=== PATIENT | male | born 1940 | race Caucasian/White ===

== ENCOUNTER → 2017-03-02 | Outpatient (CLI) | payer OTHER, BC ==
[~2017-03-02] MED LIST: FINA5TAB4 PO; LISI20TA3 PO; PRLSR20 PO
[2017-03-02 13:21] LABS: TOTAL IRON BINDING CAPACITY 292 mcg/dl (250-450)
[2017-03-02 13:29] LABS: HEPATITIS B AB NEG
[2017-03-02 14:00] LABS: ALKALINE PHOSPHATASE 62 U/L (45-117); ALT/SGPT 54 U/L (12-78); AMYLASE 77 U/L (25-115); AST/SGOT 20 U/L (15-37); BLOOD UREA NITROGEN 16 mg/dl (7-18); BUN/CREATININE RATIO 13.5 (10-20); CALCIUM 8.6 mg/dl (8.5-10.1); CARBON DIOXIDE 27 mmol/L (21-32); CHLORIDE 105 mmol/L (98-107); CHOLESTEROL 167 mg/dl (0-200); CHOLESTEROL/HDL RATIO 3.5; GLUCOSE 95 mg/dl (70-99); HDL CHOLESTEROL 48 mg/dl; LDL CHOLESTEROL CALCULATED 78 mg/dl; POTASSIUM 3.8 mmol/L (3.5-5.1); PROSTATE SPECIFIC ANTIGEN 0.561 ng/ml (0.000-4.000); SODIUM 141 mmol/L (136-145); TRIGLYCERIDES 203 mg/dl (0-150); VERY LOW DENSITY LIPOPROT CALC 41 mg/dl
== END | disposition home or self-care (01) ==
LOC: C.LABMFLN 11:56
PROVIDERS: ATTEND Family Medicine
DX: R74.0 Nonspecific elevation of levels of transaminase and lactic acid dehydrogenase [LDH] (principal); R10.9 Unspecified abdominal pain; E78.5 Hyperlipidemia, unspecified; Z12.5 Encounter for screening for malignant neoplasm of prostate

== ENCOUNTER → 2017-03-19 | Outpatient (CLI) | payer OTHER, BC ==
--- NOTE | 2017-03-19 10:02 | DIAGNOSTIC IMAGING REPORT ---
ABDOMEN COMPLETE (US) CLINICAL HISTORY: R74.0 Elevated transaminase [id number] Chronic abdominal painULT COMPARISON STUDY: CT scan dated 09/13/2014 FINDINGS: The pancreas appears sonographically normal. The gallbladder surgically absent. The liver is of increased echogenicity, nonspecific finding most often seen in hepatic steatosis. No focal hepatic masses are visualized. There is no ductal dilatation. The common bile duct measures 5 mm. The spleen measures 10.8 cm in length. No splenic masses are visualized. The right kidney measures 9.8 cm in length. The left kidney measures 11.1 cm in length. There is a 9 mm left renal cyst. There is no hydronephrosis. There is no abdominal aortic dilatation. The IVC appears normal as visualized. IMPRESSION: 1. Surgically absent gallbladder. No evidence of ductal dilatation 2. Hepatic steatosis 3. 9 mm left renal cyst Electronically signed by: Travis Garcia M.D. 03/19/2017 10:01 AM Dictated Date/Time: 03/19/2017 9:58 AM
== END | disposition home or self-care (01) ==
LOC: C.ULTR 09:11
PROVIDERS: ATTEND Family Medicine
DX: R10.9 Unspecified abdominal pain (principal); R74.0 Nonspecific elevation of levels of transaminase and lactic acid dehydrogenase [LDH]; K76.0 Fatty (change of) liver, not elsewhere classified; N28.1 Cyst of kidney, acquired

== ENCOUNTER → 2017-09-01 | Outpatient (CLI) | payer OTHER, BC ==
[2017-09-01 13:11] LABS: ALT/SGPT 50 U/L (12-78); BLOOD UREA NITROGEN 17 mg/dl (7-18); CALCIUM 9.4 mg/dl (8.5-10.1); CARBON DIOXIDE 29 mmol/L (21-32); CHLORIDE 102 mmol/L (98-107); CHOLESTEROL 186 mg/dl (0-200); CREATININE 1.32 mg/dl (0.60-1.40); GLUCOSE 86 mg/dl (70-99); POTASSIUM 3.8 mmol/L (3.5-5.1); SODIUM 137 mmol/L (136-145); TRIGLYCERIDES 162 mg/dl (0-150); VERY LOW DENSITY LIPOPROT CALC 32 mg/dl
[2017-09-01 13:14] LABS: ALKALINE PHOSPHATASE 65 U/L (45-117); AST/SGOT 24 U/L (15-37); CHOLESTEROL/HDL RATIO 3.7; HDL CHOLESTEROL 50 mg/dl; LDL CHOLESTEROL CALCULATED 104 mg/dl
== END ==
LOC: C.LABMFLN 07:02
PROVIDERS: ATTEND Family Medicine
DX: I10 Essential (primary) hypertension (principal); R74.0 Nonspecific elevation of levels of transaminase and lactic acid dehydrogenase [LDH]; E78.5 Hyperlipidemia, unspecified

== ENCOUNTER → 2017-09-14 | Outpatient (CLI) | payer OTHER, BC ==
--- NOTE | 2017-09-14 07:11 | DIAGNOSTIC IMAGING REPORT ---
AORTIC ANEURYSM RETROPERI CLINICAL HISTORY: FORMER SMOKER,R/O AAA TECHNIQUE: Ultrasound COMPARISON STUDY: None FINDINGS: Abdominal aorta is normal in course and caliber. Iliac vasculature is unremarkable. No evidence for aneurysm or dissection. IMPRESSION: Normal study The above report was generated using voice recognition software. It may contain grammatical, syntax or spelling errors. Electronically signed by: Pal Templeton M.D. 09/14/2017 7:09 AM Dictated Date/Time: 09/14/2017 7:08 AM
== END | disposition home or self-care (01) ==
LOC: C.ULTR 06:04
PROVIDERS: ATTEND Family Medicine
DX: Z87.891 Personal history of nicotine dependence (principal)

== ENCOUNTER → 2017-11-29 | Outpatient (CLI) | payer OTHER, BC ==
--- NOTE | 2017-11-29 09:17 | DIAGNOSTIC IMAGING REPORT ---
CHEST 2 VIEWS ROUTINE CLINICAL HISTORY: Cough productive of purulent sputum. Wheezes. COMPARISON STUDY: Chest radiograph September 14, 2014. FINDINGS: There is mild elevation of the right hemidiaphragm. There are cholecystectomy clips. There is no evidence for pulmonary edema. There is no consolidation to suggest pneumonia. Cardiomediastinal silhouette is normal. IMPRESSION: No acute cardiopulmonary findings. Electronically signed by: Yousif Raygoza M.D. 11/29/2017 9:15 AM Dictated Date/Time: 11/29/2017 9:14 AM
== END | disposition home or self-care (01) ==
LOC: C.RAD 08:50
PROVIDERS: ATTEND Family Medicine
DX: R05 Cough (principal); R06.2 Wheezing

== ENCOUNTER → 2018-01-07 | Outpatient (CLI) | payer OTHER, BC ==
--- NOTE | 2018-01-08 16:46 | PULMONARY FUNCTION TEST ---
INTERPRETATION: Spirometry is consistent with a mild to moderate obstructive pattern. Repeat study done following bronchodilators showed significant improvement in small airways function only. Advise clinical correlation. Flow volume loops are consistent with spirometric findings. Lung volumes showed an increased FRC and RV consistent with obstruction and air trapping. Diffusion capacity was normal at 94% predicted.
== END | disposition home or self-care (01) ==
LOC: C.RC 10:04
PROVIDERS: ATTEND Family Medicine
DX: J44.9 Chronic obstructive pulmonary disease, unspecified (principal)

== ENCOUNTER 2023-08-12 17:37 | Inpatient (IN) ==
[2023-08-12 18:37] LABS: Basophils # (auto) 0.06 K/uL (0.00-0.20); Basophils % (auto) 0.4 %; Eosinophils # (auto) 0.13 K/uL (0.00-0.50); Eosinophils % (auto) 0.8 %; Hematocrit (blood only) 48.7 % (42.0-52.0); Hemoglobin 17.2 g/dl (14.0-18.0); Immature Granulocytes # (auto) 0.08 K/uL (0.01-0.20); Immature Granulocytes % (auto) 0.5 %; Lymphocytes # (auto) 2.99 K/uL (1.20-3.40); Lymphocytes % (auto) 18.1 %; Mean Corpuscular Hemoglobin 31.9 pg (25.0-34.0); Mean Corpuscular Hgb Conc 35.3 g/dL (32.0-36.0); Mean Corpuscular Volume 90.4 fL (80.0-100.0); Mean Platelet Volume 10.4 fL (9.4-12.4); Monocytes % (auto) 11.5 %; Neutrophils # (auto) 11.35 K/uL (1.40-6.50); Neutrophils % (auto) 68.7 %; Platelet Count 270 K/uL (130-400); RDW Coefficient of Variation 13.2 % (11.5-14.5); RDW Standard Deviation 43.7 fL (36.4-46.3); Red Blood Count 5.39 M/uL (4.70-6.10); White Blood Count 16.51 K/ul (4.8-10.8)
[2023-08-12 18:53] LABS: Albumin Globulin Ratio 1.4 (0.9-2); Albumin Level 4.6 gm/dl (3.4-5.0); BUN Creatinine Ratio 17.8 (10-20); Bilirubin,Total 1.3 mg/dl (0.2-1.0); Calcium 9.9 mg/dl (8.6-10.3); Creatinine Clr Calc Pharmacy 38.7 ml/min; Est GFR (African American) 51.5 ml/min; Est GFR (Non-African American) 44.5 ml/min; Globulin 3.2 gm/dl (2.5-4.0); Potassium 4.3 mmol/L (3.5-5.1); Total Protein 7.8 gm/dl (6.0-8.3)
[2023-08-12] MEDS ORDERED: ONDANSETRON INJ 2 MG/ML 2 ML VIAL IV STA (19:46)
[2023-08-12] MEDS ORDERED: ONDANSETRON INJ 2 MG/ML 2 ML VIAL ONE (19:46)
--- NOTE | 2023-08-12 19:56 | CT Scan Report ---
Exam(s): CT ABDOMEN + PELVIS Without Contrast EXAM: CT Abdomen and Pelvis Without Intravenous Contrast CLINICAL HISTORY: Reason for exam: abd pain, ?sbo. TECHNIQUE: Axial computed tomography images of the abdomen and pelvis without intravenous contrast. CTDI is 27.05 mGy and DLP is 1394.81 mGy-cm. Automated exposure control was utilized for the study. A dose lowering technique was utilized adhering to the principles of ALARA. COMPARISON: No relevant prior studies available. FINDINGS: Lung bases: Atelectasis at the lung bases. ABDOMEN: Liver: Unremarkable. Gallbladder and bile ducts: Cholecystectomy. No ductal dilation. Pancreas: Unremarkable. No ductal dilation. Spleen: Unremarkable. No splenomegaly. Adrenals: Unremarkable. No mass. Kidneys and ureters: Unremarkable. No hydronephrosis, nephrolithiasis, or obstructive uropathy. Stomach and bowel: Distended small bowel measured up to 3.2 cm, concerning for small bowel obstruction. No definite transition point identified. Surgical evaluation recommended. Diverticulosis, without acute diverticulitis. No small bowel obstruction. No free air. PELVIS: Appendix: Normal appendix. Bladder: Unremarkable. No stones. Reproductive: Unremarkable as visualized. ABDOMEN and PELVIS: Intraperitoneal space: See above. Bones/joints: Degenerative changes of the spine. No acute fracture. No dislocation. Soft tissues: Bilateral fat-containing inguinal hernias. Vasculature: Atherosclerotic changes of the aorta. No abdominal aortic aneurysm. Lymph nodes: Unremarkable. No enlarged lymph nodes. IMPRESSION: Distended small bowel measured up to 3.2 cm, concerning for small bowel obstruction. No definite transition point identified. Surgical evaluation recommended. Electronically signed by: Juvenal Mckeon MD 08/12/23 19:55 PM
[2023-08-12] MEDS ORDERED: SODIUM CHLORIDE 0.9% 1,000 ML IV ONE (20:13)
--- NOTE | 2023-08-12 20:21 | Emergency Department Note ---
Impression & Plan SBO (small bowel obstruction), Vomiting, JASON (acute kidney injury) ED Provider Note NAME: LAURENT RYAN AGE: 83 SEX: M : 1940 ARRIVES VIA: Walk-In INFORMANT: Patient, ED PROVIDER(S): Liam Antonio DO CHIEF COMPLAINT: Vomiting HPI: The patient is a an 83-year-old male who presented to the emergency department for an evaluation of nausea vomiting. The patient's had a 2 to 3-day history of abdominal pain constipation and then nausea vomiting today. He has a surgical history of cholecystectomy in the past. He denies having any chest pain or difficulty breathing. The patient denies having any fever or dysuria. The patient was not seen by provider. He was using [id number] medication for constipation which did not significantly help his symptoms so he came to the emergency department today at the urging of a family member for further evaluation. He denies having any hernias. ROS: See above HPI for pertinent positives & negatives. A total of 10 systems reviewed and were otherwise negative. PAST MEDICAL HISTORY: See Below PAST SURGICAL HISTORY: See Below FAMILY HISTORY: See Below SOCIAL HISTORY: See Below HOME MEDICATIONS: See Below ALLERGIES: See Below VITALS: See Below PHYSICAL EXAMINATION: GENERAL: The patient is awake and alert. He appears to be uncomfortable. EYES: The conjunctivae are clear. The pupils are round and reactive. EARS, NOSE, MOUTH AND THROAT: The nose is without any evidence of any deformity. NECK: The neck is nontender and supple. RESPIRATORY: Normal respiratory effort is noted there is no evidence of wheezing rhonchi or rales CARDIOVASCULAR: Regular rate and rhythm noted there no murmurs rubs or gallops normal S1 normal S2. GASTROINTESTINAL: The abdomen is distended. There is diffuse tenderness to palpation. MUSCULOSKELETAL/EXTREMITIES: There is no evidence of gross deformity full range of motion is noted in the hips and shoulders. SKIN: There is no obvious evidence of any rash. There are no petechiae, pallor or cyanosis noted. NEUROLOGIC: Patient is awake alert and oriented x3 MEDICAL DECISION MAKING: The patient is an 83-year-old male who presented to the emergency department for an evaluation of abdominal pain. The patient has a history of cholecystectomy in the past but no other intra-abdominal surgery. The patient was found have signs of abdominal distention as well as bowel obstruction on CT. I discussed the patient's laboratory and radiographic studies with him. He was treated with IV fluids as well as IV antiemetics. NG tube was ordered although the patient did have significant difficulty tolerating this procedure. I discussed the patient's condition with the on-call general surgical group. I did also discussed the case with the on-call [facility] hospitalist. They have agreed to evaluate the patient in the emergency department for further management and disposition. Triage Nursing notes reviewed. Prior medical records reviewed Vital Signs: reviewed and remarkable for no significant abnormalities Differential diagnosis: Gastroenteritis, food borne illness, infections, appendicitis, diverticulitis, inflammatory bowel disease, obstruction, GI bleed, biliary pathology, volvulus, as well as other pathologies. ER treatment provided: See below Diagnostics interpreted by me: ECG: EKG was obtained in the emergency department. My interpretation is sinus tachycardia at 106 bpm. There was no ectopy. Right bundle branch block pattern was noted. This was compared to a tracing from September 13, 2014. No changes were noted Cardiac Monitoring: An order was placed for continuous cardiac monitoring. The monitor shows a rate of 93 bpm with sinus rhythm. Laboratory studies: As stated above and show below. Imaging studies: See below. Radiographic imaging was reviewed by myself Consultation(s): Dr. Douglas who is on-call for the [facility] Hospitalist group was notified about the patient I discussed this case with Giorgi who was on for the general surgical group. 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 Dizziness Dyslipidemia Folate deficiency Lightheadedness Medicare annual wellness visit, subsequent Right shoulder pain Right shoulder pain Vitamin D insufficiency Surgical History H/O arthroscopic knee surgery History of cholecystectomy History of hand surgery Family History Grandmother Diabetes Mother Cancer Daughter Family history of cervical cancer Liver cirrhosis secondary to ERAZO Denies family history of Ovarian cancer Prostate cancer Myocardial infarction Breast cancer Colorectal cancer Social History Smoking Status: Unknown if ever smoked Second Hand Exposure: Yes; Do You Dip or Chew Tobacco: No; Hx Alcohol Use: No Hx Substance Use: No Preferred Language: Albanian Visual Impairment: No Limitations Hearing Ability: Normal marital status: current occupational status: retired Feels Safe at Home: Yes Childhood Exposure to Second-Hand Smoke: Yes Seatbelt Use: never Allergies Allergies Allergy/AdvReac Type Severity Reaction Status Date / Time Iodinated Contrast Media AdvReac Intermediate CAN'T Verified 08/12/23 20:48 BREATHE Home Meds Home Medications Medication Instructions Recorded Confirmed cholecalciferol (vitamin D3) 10 20 mcg PO HS 08/12/23 08/12/23 mcg (400 unit) tablet (Vitamin D3) finasteride 5 mg tablet 5 mg PO HS 08/12/23 08/12/23 folic acid 400 mcg tablet 0.4 mg PO HS 08/12/23 08/12/23 losartan 100 mg tablet 100 mg PO QAM 08/12/23 08/12/23 mecobalamin (vitamin B12) 1,000 1,000 mcg PO HS 08/12/23 08/12/23 mcg chewable tablet omeprazole 40 mg capsule,delayed 40 mg PO HS 08/12/23 08/12/23 release Previous Rx's Medication Instructions Recorded nitroglycerin 0.4 mg sublingual 0.4 mg sublingual Q5M PRN chest 11/23/20 tablet pain #25 tabs fluticasone fur. 100 mcg-umeclid 1 inh inhalation DAILY #60 ea 09/12/21 62.5 mcg-vilant 25 mcg inhalat.powder (Trelegy Ellipta) Results & Data (ED) Vital Signs Vital Signs - 24 hr 08/12/23 17:56 08/12/23 19:48 08/12/23 20:58 Temperature 36.5 C Temperature Source Temporal Artery Scan Pulse Rate 115 H 106 H Pulse Rate [Right Finger] 114 H Respiratory Rate 19 19 Respiratory Effort / Characteristics Non-Labored Spontaneous Non-Labored Spontaneous Respiratory Depth Normal Normal Blood Pressure 133/85 Blood Pressure [Left Arm] 132/107 H Blood Pressure Mean 101 Blood Pressure Mean [Left Arm] 115 Pulse Oximetry 95 96 Oxygen Delivery Method Room Air Room Air Sepsis Recent Fever Within 48 Hours No Sepsis New/Unexplained Change in Mental Status N/A Sepsis Action Taken by Nursing No Action Required 08/12/23 21:00 08/12/23 21:30 Temperature Temperature Source Pulse Rate 90 93 H Pulse Rate [Right Finger] Respiratory Rate 21 20 Respiratory Effort / Characteristics Respiratory Depth Blood Pressure 141/71 H 104/79 Blood Pressure [Left Arm] Blood Pressure Mean 94 87 Blood Pressure Mean [Left Arm] Pulse Oximetry 92 92 Oxygen Delivery Method Room Air Room Air Sepsis Recent Fever Within 48 Hours Sepsis New/Unexplained Change in Mental Status Sepsis Action Taken by [facility] Medications Current Medication List: was personally reviewed by me Laboratory Data Attestation: I reviewed the patient's lab results. 08/12/23 18:19 08/12/23 18:19 Lab Results 08/12/23 08/12/23 Range/Units 18:19 18:19 WBC 16.51 H (4.8-10.8) K/ul RBC 5.39 (4.70-6.10) M/uL Hgb 17.2 (14.0-18.0) g/dl Hct 48.7 (42.0-52.0) % MCV 90.4 (80.0-100.0) fL MCH 31.9 (25.0-34.0) pg MCHC 35.3 (32.0-36.0) g/dL RDW Std Deviation 43.7 (36.4-46.3) fL RDW Coeff of [place] 13.2 (11.5-14.5) % Plt Count 270 (130-400) K/uL MPV 10.4 (9.4-12.4) fL Immature Gran % (Auto) 0.5 % Neut % (Auto) 68.7 % Lymph % (Auto) 18.1 % [place] % (Auto) 11.5 % Eos % (Auto) 0.8 % Baso % (Auto) 0.4 % Neut # (Auto) 11.35 H (1.40-6.50) K/uL Lymph # (Auto) 2.99 (1.20-3.40) K/uL [place] # (Auto) 1.90 H (0.11-0.59) K/uL Eos # (Auto) 0.13 (0.00-0.50) K/uL Baso # (Auto) 0.06 (0.00-0.20) K/uL Immature Gran # (Auto) 0.08 (0.01-0.20) K/uL Sodium 135 L (136-145) mmol/L Potassium 4.3 (3.5-5.1) mmol/L Chloride 98 (98-107) mmol/L Carbon Dioxide 26 (21-32) mmol/L Anion Gap 11 (3-11) BUN 26 H (6-23) mg/dl Creatinine 1.46 H (0.6-1.4) mg/dl Est Cr Clr Drug Dosing 38.7 ml/min Est GFR ( Amer) 51.5 ml/min Est GFR (Non-Af Amer) 44.5 ml/min BUN/Creatinine Ratio 17.8 (10-20) Glucose 121 H (70-99(Fasting)) mg/dl Calcium 9.9 (8.6-10.3) mg/dl Total Bilirubin 1.3 H (0.2-1.0) mg/dl AST 61 H (13-39) U/L ALT 130 H (7-52) U/L Alkaline Phosphatase 91 (34-104) U/L Total Protein 7.8 (6.0-8.3) gm/dl Albumin 4.6 (3.4-5.0) gm/dl Globulin 3.2 (2.5-4.0) gm/dl Albumin/Globulin Ratio 1.4 (0.9-2) Lipase 15 (11-82) U/L Administered Medications Discontinued Medications Sodium Chloride (Nss) 1,000 mls @ 999 mls/hr IV .Q1H1M ONE Stop: 08/12/23 21:13 Last Infusion: 08/12/23 21:23 Dose: 0 mls/hr Documented By: Admin: 08/12/23 20:21 Dose: 999 mls/hr Documented By: KEANU Ondansetron HCl (Ondansetron Inj 2 Mg/Ml 2 Ml Vial) Confirm Administered Dose 4 mg .ROUTE .STK-MED ONE Stop: 08/12/23 19:47 Last Admin: 08/12/23 19:47 Dose: Not Given Documented By: SARAHI Ondansetron HCl (Ondansetron Inj 2 Mg/Ml 2 Ml Vial) 4 mg IV NOW STA Stop: 08/12/23 19:47 Last Admin: 08/12/23 19:47 Dose: 4 mg Documented By: SARAHI Imaging Data Attestation: I personally reviewed and interpreted this imaging study as follows: My Impression: CT of the abdomen and pelvis was obtained in the emergency department. My interpretation is dilated loops of small bowel consistent with bowel obstruction, there is no free air, final report below Radiologist's Impression: Abdomen/Pelvis CT 08/12/23 19:05 Exam(s): CT ABDOMEN + PELVIS Without Contrast EXAM: CT Abdomen and Pelvis Without Intravenous Contrast CLINICAL HISTORY: Reason for exam: abd pain, ?sbo. TECHNIQUE: Axial computed tomography images of the abdomen and pelvis without intravenous contrast. CTDI is 27.05 mGy and DLP is 1394.81 mGy-cm. Automated exposure control was utilized for the study. A dose lowering technique was utilized adhering to the principles of ALARA. COMPARISON: No relevant prior studies available. FINDINGS: Lung bases: Atelectasis at the lung bases. ABDOMEN: Liver: Unremarkable. Gallbladder and bile ducts: Cholecystectomy. No ductal dilation. Pancreas: Unremarkable. No ductal dilation. Spleen: Unremarkable. No splenomegaly. Adrenals: Unremarkable. No mass. Kidneys and ureters: Unremarkable. No hydronephrosis, nephrolithiasis, or obstructive uropathy. Stomach and bowel: Distended small bowel measured up to 3.2 cm, concerning for small bowel obstruction. No definite transition point identified. Surgical evaluation recommended. Diverticulosis, without acute diverticulitis. No small bowel obstruction. No free air. PELVIS: Appendix: Normal appendix. Bladder: Unremarkable. No stones. Reproductive: Unremarkable as visualized. ABDOMEN and PELVIS: Intraperitoneal space: See above. Bones/joints: Degenerative changes of the spine. No acute fracture. No dislocation. Soft tissues: Bilateral fat-containing inguinal hernias. Vasculature: Atherosclerotic changes of the aorta. No abdominal aortic aneurysm. Lymph nodes: Unremarkable. No enlarged lymph nodes. IMPRESSION: Distended small bowel measured up to 3.2 cm, concerning for small bowel obstruction. No definite transition point identified. Surgical evaluation recommended. Electronically signed by: Juvenal Mckeon MD 08/12/23 19:55 PM Discharge Plan Visit Data Chief Complaint: GI Assessment Stated Complaint: BOWEL BLOCKAGE, VOMIT, ABD PAIN ED Provider: Liam Antonio Discharge Problem: SBO (small bowel obstruction), Vomiting, JASON (acute kidney injury) Patient Disposition: Being Evaluated by Hospitalist Forms Stand Alone Forms: My [facility] Prescriptions Prescriptions: No Action nitroglycerin 0.4 mg tablet, sublingual 0.4 mg sublingual Q5M PRN (Reason: chest pain) Qty: 25 0RF Rx Instructions: do not exceed 3 doses per episode Trelegy Ellipta 100-62.5-25 mcg blister with device 1 inh INH DAILY Qty: 60 11RF finasteride 5 mg tablet 5 mg PO HS folic acid 400 mcg Tablet 0.4 mg PO HS cholecalciferol (vitamin D3) [Vitamin D3] 10 mcg (400 unit) Tablet 20 mcg PO HS omeprazole 40 mg capsule,delayed release(DR/EC) 40 mg PO HS losartan 100 mg tablet 100 mg PO QAM Rx Instructions: instead of Lisinopril. mecobalamin (vitamin B12) 1,000 mcg tablet,chewable 1,000 mcg PO HS Referrals Referrals: Casey Tinoco MD [Primary Care Provider] -
--- NOTE | 2023-08-12 20:50 | Surgery Consultation ---
Date of Consultation August 12, 2023 Assessment & Plan (1) SBO (small bowel obstruction): I discussed this case with treatment physician the patient is being admitted to hospital service. From surgical perspective we recommend proceeding as follows: Provide analgesics Provide antiemetic Maintain n.p.o. status Intravenous fluids for resuscitation should be continued The treating emergency room physician has ordered an NG tube be placed. The nursing staff has tried multiple times to place this modality without success. The patient has now expressed his desire to avoid this modality. At the current time he notes that his abdominal pain is not very severe and he is currently not throwing up so we can hold on this modality. I did discuss with the patient that if he has worsening of his abdominal exam or if he has further nausea vomiting this modality may need to be reconsidered Follow serial labs I discussed with the patient the cause of his small bowel obstruction has not been ascertained. Could be from scar tissue from his previous cholecystectomy or he could merely be suffering from a gastroenteritis. I discussed with him the rationale for conservative management as noted above. We will continue to follow along with the patient with additional recommendations based on his clinical course as it unfolds Supervising Physician Co-Signing Physician Notes pnt d/w RAÚL Acosta, labs and imaging reviewed, agree with above. CT looks like entereitis vs. psbo, no transitions point, will monitor. History of Present Illness Reason for Consultation: Small bowel obstruction History of Present Illness This is an 83-year-old male who presented to the emergency department at [facility] secondary to nausea and vomiting and abdominal pressure. The patient notes that he was in his usual state of health approximately 36 to 48 hours ago but yesterday he developed some abdominal pressure and bloating with associated nausea and vomiting. He does not note any radiation of his abdominal discomfort he denies any provocative factors. He does note that his s ymptomatology improved somewhat with nausea and vomiting. Patient notes that he had a bowel movement earlier this morning that was mostly liquid. He denies any hematochezia or melena. With his emesis he denies any hematemesis. He does note that his only abdominal surgery was a cholecystectomy he had many years ago. He does report that he had a small bowel obstruction several years ago but this was treated successfully in a conservative manner and did not require surgery. In addition to what is noted above the patient did report feeling feverish with occasional chills yesterday at about the same time his symptoms began. He notes that no close contacts were ill with similar symptoms. Since arrival to hospital patient's had labs and imaging which I have been reviewed. Patient had a CT scan of the abdomen pelvis that showed patient had a distended small bowel measuring approximately 3.2 cm concerning for small bowel obstruction without definite transition point. There is no free intraperitoneal air noted on the study Labs include a CBC her white blood cell count was elevated 16.5. Hemoglobin and hematocrit, platelet count were normal. Chemistry profile shows sodium is 135 with a normal potassium. Patient's BUN and creatinine were 26 and 1.4. Patient did have slight elevation of his total bilirubin 1.3 and his transaminases were also elevated at 61 and 130 respectively. Alkaline phosphatase and lipase were nonelevated. At the time of my interview the patient was resting comfortably in bed and he was in no distress Allergies Allergy/AdvReac Type Severity Reaction Status Date / Time Iodinated Contrast Media AdvReac Intermediate CAN'T Verified 08/12/23 20:48 BREATHE Home Medications Medication Instructions Recorded Confirmed Type nitroglycerin 0.4 mg sublingual 0.4 mg sublingual Q5M PRN chest 11/23/20 08/12/23 Rx tablet pain #25 tabs fluticasone fur. 100 mcg-umeclid 1 inh inhalation DAILY #60 ea 09/12/21 08/12/23 Rx 62.5 mcg-vilant 25 mcg inhalat.powder (Trelegy Ellipta) cholecalciferol (vitamin D3) 10 20 mcg PO HS 08/12/23 08/12/23 History mcg (400 unit) tablet (Vitamin D3) finasteride 5 mg tablet 5 mg PO HS 08/12/23 08/12/23 History folic acid 400 mcg tablet 0.4 mg PO HS 08/12/23 08/12/23 History losartan 100 mg tablet 100 mg PO QAM 08/12/23 08/12/23 History mecobalamin (vitamin B12) 1,000 1,000 mcg PO HS 08/12/23 08/12/23 History mcg chewable tablet omeprazole 40 mg capsule,delayed 40 mg PO HS 08/12/23 08/12/23 History release Patient History Medical History Bilateral primary osteoarthritis of knee COPD with emphysema Dizziness Dyslipidemia Folate deficiency Lightheadedness Medicare annual wellness visit, subsequent Right shoulder pain Right shoulder pain Vitamin D insufficiency Surgical History H/O arthroscopic knee surgery History of cholecystectomy History of hand surgery Family History Grandmother Diabetes Mother Cancer Daughter Family history of cervical cancer Liver cirrhosis secondary to ERAZO Denies family history of Ovarian cancer Prostate cancer Myocardial infarction Breast cancer Colorectal cancer Social History Smoking Status: Unknown if ever smoked Second Hand Exposure: Yes; Do You Dip or Chew Tobacco: No; Hx Alcohol Use: No Hx Substance Use: No Preferred Language: Cook Islander Visual Impairment: No Limitations Hearing Ability: Normal marital status: current occupational status: retired Feels Safe at Home: Yes Childhood Exposure to Second-Hand Smoke: Yes Seatbelt Use: never Review of Systems Constitutional: + fever (Subjective) and + chills Eyes: + corrective lenses Ear, Nose, Mouth, Throat: no ear pain Respiratory: no cough Cardiovascular: no chest pain Gastrointestinal: as per Subjective / HPI Genitourinary: no dysuria Musculoskeletal: no back pain Integumentary: no rash Neurologic: no localized weakness Physical Exam Constitutional: WD/WN, vitals as above Eyes: Wears glasses ENMT: Ears: no hearing impairment and no external ear abnormality Mucous membranes are dry Neck: trachea midline Respiratory: normal respiratory effort, lungs clear to auscultation Cardiovascular: Rate/Rhythm: regular rate and regular rhythm Vessels: dorsalis pedis pulses present and radial pulses present Gastrointestinal (Abdomen): Abdomen is moderately distended with some tympany to percussion. There is no rebound tenderness or guarding. Patient had minor tenderness noted in a diffuse fashion throughout his abdomen. Musculoskeletal: No calf tenderness Skin: no rashes Neurologic: moves all extremities Psychiatric: A+Ox3, euthymic affect Results & Data Vital Signs (Past 12 Hours) Vital Signs Temp Pulse Pulse Resp BP BP Pulse Ox 08/12/23 19:48 114 H 19 132/107 H 96 08/12/23 17:56 36.5 C 115 H 19 133/85 95 O2 Del Method 08/12/23 19:48 Room Air 08/12/23 17:56 Room Air PG Care Time/CCT Total # of Minutes Spent Total Time Spent with Patient: Total time spent is greater than 50% in coordination of care (as documented) at patient's floor/unit and/or counseling patient: Coding Level of Care Code 24229 INT INP/OBS CARE 3/75MIN Diagnoses SBO (small bowel obstruction) K56.609
--- NOTE | 2023-08-12 21:14 | History & Physical Report ---
Date of Service August 12, 2023 Assessment & Plan (1) SBO (small bowel obstruction): Plan: 83 yo male with PMHx of HTN, GERD, BPH, and COPD presents with abdominal pain. #SBO -presented with 1 day abdominal pain/distention. With leukocytosis, likely reactive to pain. No obvious signs for infection. SBO likely due to adhesions, s/p cholecystectomy. -CT A/P: Distended small bowel measured up to 3.2 cm, concerning for small bowel obstruction. -ED did attempt NG tube insertion but unsuccessful x4 attempt. Will hold off for now, pt appears comfortable with medications. If worsens, consider reattempting with pediatric tube. -gen surg consulted- no surgical indication at this time -strict NPO, pain control, IVF, anti-emetics #JASON -Cr 1.46 on admission. Baseline wnl. Suspect dehydration. IVF as above. Monitor. #HTN -resume losartan when able #GERD -resume omeprazole when able #BPH -resume finasteride when able #COPD -cont. home inahlers DVT ppx: heparin SQ FEN/GI: NPO, IVF @ 125 Code Status: full Dispo: med surg (2) COPD with emphysema: (3) BPH without obstruction/lower urinary tract symptoms: (4) Hypertension: (5) GERD (gastroesophageal reflux disease): (6) JASON (acute kidney injury): History of Present Illness Chief Complaint: abdominal pain Primary Care Provider: Casey Tinoco MD 83 yo male with PMHx of HTN, GERD, BPH, and COPD presents with abdominal pain. Yesterday patient started feeling abdominal pain and distention which progressively got worse. He did have 1 bout of diarrhea this morning and then proceeded to vomit clear liquid. He also endorses a headache he has been experiencing over the last few weeks. Otherwise denies chest pain, shortness of breath, fatigue, fever, dysuria, urinary frequency, extremity weakness/numbness/tingling. Does have a history of cholecystectomy. No history of hernias. Allergies Allergy/AdvReac Type Severity Reaction Status Date / Time Iodinated Contrast Media AdvReac Intermediate CAN'T Verified 08/12/23 20:48 BREATHE Home Medications Medication Instructions Recorded Confirmed Type nitroglycerin 0.4 mg sublingual 0.4 mg sublingual Q5M PRN chest 11/23/20 08/12/23 Rx tablet pain #25 tabs fluticasone fur. 100 mcg-umeclid 1 inh inhalation DAILY #60 ea 09/12/21 08/12/23 Rx 62.5 mcg-vilant 25 mcg inhalat.powder (Trelegy Ellipta) cholecalciferol (vitamin D3) 10 20 mcg PO HS 08/12/23 08/12/23 History mcg (400 unit) tablet (Vitamin D3) finasteride 5 mg tablet 5 mg PO HS 08/12/23 08/12/23 History folic acid 400 mcg tablet 0.4 mg PO HS 08/12/23 08/12/23 History losartan 100 mg tablet 100 mg PO QAM 08/12/23 08/12/23 History mecobalamin (vitamin B12) 1,000 1,000 mcg PO HS 08/12/23 08/12/23 History mcg chewable tablet omeprazole 40 mg capsule,delayed 40 mg PO HS 08/12/23 08/12/23 History release 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 Dizziness Dyslipidemia Folate deficiency Lightheadedness Medicare annual wellness visit, subsequent Right shoulder pain Right shoulder pain Vitamin D insufficiency Surgical History H/O arthroscopic knee surgery History of cholecystectomy History of hand surgery Family History Grandmother Diabetes Mother Cancer Daughter Family history of cervical cancer Liver cirrhosis secondary to ERAZO Denies family history of Ovarian cancer Prostate cancer Myocardial infarction Breast cancer Colorectal cancer Social History Smoking Status: Former smoker Second Hand Exposure: Yes; Do You Dip or Chew Tobacco: Yes; Hx Alcohol Use: Yes Alcohol type: beer Hx Substance Use: No Preferred Language: Kyrgyz Communication Ability: Effective Visual Impairment: No Limitations Hearing Ability: Normal 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 AOx3. Vitals as above. HEENT: No scleral injection or discharge.Dry mucous membranes. Neck: Supple without lymphadenopathy or thyromegaly. Trachea midline. Lungs: Clear to auscultation bilaterally with good effort. No wheezes/rales/rhonchi. Cardiac: Regular rate and rhythm. No murmurs.No lower extremity edema. 2+ distal peripheral pulses. Abdomen: Moderate distention and diffuse tenderness to palpation. MSK: No cyanosis or clubbing. Extremities motor strength 5/5. Skin: No rashes, warm, dry. Neurologic: no focal deficits Results & Data Results & Data Vital Signs (Past 12 Hours) Vital Signs Temp Pulse Pulse Resp BP BP Pulse Ox 08/12/23 21:00 90 21 141/71 H 92 08/12/23 20:58 106 H 08/12/23 19:48 114 H 19 132/107 H 96 08/12/23 17:56 36.5 C 115 H 19 133/85 95 O2 Del Method 08/12/23 21:00 Room Air 08/12/23 20:58 08/12/23 19:48 Room Air 08/12/23 17:56 Room Air Laboratory Results Laboratory Results WBC 16.51 K/ul (4.8-10.8) H 08/12/23 18:19 RBC 5.39 M/uL (4.70-6.10) 08/12/23 18:19 Hgb 17.2 g/dl (14.0-18.0) 08/12/23 18:19 Hct 48.7 % (42.0-52.0) 08/12/23 18:19 MCV 90.4 fL (80.0-100.0) 08/12/23 18:19 MCH 31.9 pg (25.0-34.0) 08/12/23 18:19 MCHC 35.3 g/dL (32.0-36.0) 08/12/23 18:19 RDW Std Deviation 43.7 fL (36.4-46.3) 08/12/23 18:19 RDW Coeff of [place] 13.2 % (11.5-14.5) 08/12/23 18:19 Plt Count 270 K/uL (130-400) 08/12/23 18:19 MPV 10.4 fL (9.4-12.4) 08/12/23 18:19 Immature Gran % (Auto) 0.5 % 08/12/23 18:19 Neut % (Auto) 68.7 % 08/12/23 18:19 Lymph % (Auto) 18.1 % 08/12/23 18:19 [place] % (Auto) 11.5 % 08/12/23 18:19 Eos % (Auto) 0.8 % 08/12/23 18:19 Baso % (Auto) 0.4 % 08/12/23 18:19 Neut # (Auto) 11.35 K/uL (1.40-6.50) H 08/12/23 18:19 Lymph # (Auto) 2.99 K/uL (1.20-3.40) 08/12/23 18:19 [place] # (Auto) 1.90 K/uL (0.11-0.59) H 08/12/23 18:19 Eos # (Auto) 0.13 K/uL (0.00-0.50) 08/12/23 18:19 Baso # (Auto) 0.06 K/uL (0.00-0.20) 08/12/23 18:19 Immature Gran # (Auto) 0.08 K/uL (0.01-0.20) 08/12/23 18:19 Sodium 135 mmol/L (136-145) L 08/12/23 18:19 Potassium 4.3 mmol/L (3.5-5.1) 08/12/23 18:19 Chloride 98 mmol/L (98-107) 08/12/23 18:19 Carbon Dioxide 26 mmol/L (21-32) 08/12/23 18:19 Anion Gap 11 (3-11) 08/12/23 18:19 BUN 26 mg/dl (6-23) H 08/12/23 18:19 Creatinine 1.46 mg/dl (0.6-1.4) H 08/12/23 18:19 Est Cr Clr Drug Dosing 38.7 ml/min 08/12/23 18:19 Est GFR ( Amer) 51.5 ml/min 08/12/23 18:19 Est GFR (Non-Af Amer) 44.5 ml/min 08/12/23 18:19 BUN/Creatinine Ratio 17.8 (10-20) 08/12/23 18:19 Glucose 121 mg/dl (70-99(Fasting)) H 08/12/23 18:19 Calcium 9.9 mg/dl (8.6-10.3) 08/12/23 18:19 Total Bilirubin 1.3 mg/dl (0.2-1.0) H 08/12/23 18:19 AST 61 U/L (13-39) H 08/12/23 18:19 ALT 130 U/L (7-52) H 08/12/23 18:19 Alkaline Phosphatase 91 U/L (34-104) 08/12/23 18:19 Total Protein 7.8 gm/dl (6.0-8.3) 08/12/23 18:19 Albumin 4.6 gm/dl (3.4-5.0) 08/12/23 18:19 Globulin 3.2 gm/dl (2.5-4.0) 08/12/23 18:19 Albumin/Globulin Ratio 1.4 (0.9-2) 08/12/23 18:19 Lipase 15 U/L (11-82) 08/12/23 18:19 Impressions Abdomen/Pelvis CT 08/12/23 19:05 Exam(s): CT ABDOMEN + PELVIS Without Contrast EXAM: CT Abdomen and Pelvis Without Intravenous Contrast CLINICAL HISTORY: Reason for exam: abd pain, ?sbo. TECHNIQUE: Axial computed tomography images of the abdomen and pelvis without intravenous contrast. CTDI is 27.05 mGy and DLP is 1394.81 mGy-cm. Automated exposure control was utilized for the study. A dose lowering technique was utilized adhering to the principles of ALARA. COMPARISON: No relevant prior studies available. FINDINGS: Lung bases: Atelectasis at the lung bases. ABDOMEN: Liver: Unremarkable. Gallbladder and bile ducts: Cholecystectomy. No ductal dilation. Pancreas: Unremarkable. No ductal dilation. Spleen: Unremarkable. No splenomegaly. Adrenals: Unremarkable. No mass. Kidneys and ureters: Unremarkable. No hydronephrosis, nephrolithiasis, or obstructive uropathy. Stomach and bowel: Distended small bowel measured up to 3.2 cm, concerning for small bowel obstruction. No definite transition point identified. Surgical evaluation recommended. Diverticulosis, without acute diverticulitis. No small bowel obstruction. No free air. PELVIS: Appendix: Normal appendix. Bladder: Unremarkable. No stones. Reproductive: Unremarkable as visualized. ABDOMEN and PELVIS: Intraperitoneal space: See above. Bones/joints: Degenerative changes of the spine. No acute fracture. No dislocation. Soft tissues: Bilateral fat-containing inguinal hernias. Vasculature: Atherosclerotic changes of the aorta. No abdominal aortic aneurysm. Lymph nodes: Unremarkable. No enlarged lymph nodes. IMPRESSION: Distended small bowel measured up to 3.2 cm, concerning for small bowel obstruction. No definite transition point identified. Surgical evaluation recommended. Electronically signed by: Juvenal Mckeon MD 08/12/23 19:55 PM Supervising Physician Co-Signing Physician Notes Patient seen and examined, chart reviewed, case discussed with Dr. Mcdonald and I agree with the assessment and plan as above. In brief, patient is an 83yo male with prior cholecystectomy presenting with several days of abdominal pain and distention. Minimal passage of flatus and stool. On exam he is afebrile, HD stable, NAD Skin - no rash HEENT - NC/AT, PERRL, MMM Heart - +S1/S2, regular Lungs - CTA Abd - soft, mild distention, soft, tympanic, tenderness without reboud Ext - warm, well perfused Labs and images reviewed Assessment/plan 83yo male with concern for SBO. Patient with prior cholecystectomy, reports did have an SBO in the past but is uncertain of details. +Pain and moderate distention. No nausea. Attempt to place NGT in the ER unsuccessful - patient would like to avoid further attempts. As nausea and pain are controlled at this time is not emergent -Pain control, anti-emetics, NPO and IVF -General Surgery consultation appreciated -Remainder as above Resident Activity Tracking Resident Involvement: Resident Care Provided Care Provided: [facility]
[2023-08-12] MEDS ORDERED: ONDANSETRON INJ 2 MG/ML 2 ML VIAL IV PRN (23:51)
[2023-08-12] MEDS ORDERED: ACETAMINOPHEN 1,000 MG/100 ML VIAL IV PRN (23:51)
[2023-08-12] MEDS ORDERED: HYDROmorphone INJ 0.5 MG/0.5 ML SYR IV PRN (23:51)
--- NOTE | 2023-08-13 00:41 | Billing Data ---
Date of Service August 12, 2023 Coding Level of Care Code 30780 INT INP/OBS CARE
[2023-08-13 00:55] LABS: Appearance Urine Clear (Clear); Bacteria Urine Automated Negative (Negative); Blood Urine Negative (Negative); Color Urine Orange; Epithelial Cell Urine Auto 20-30 /lpf (0-5); Glucose Urine UA Negative (Negative); Ketones Urine 1+ (Negative); Leukocyte Esterase Urine Trace (Negative); Nitrite Urine Positive (Negative); Protein Urine Trace (Negative); RBC Urine Automated 0-4 /hpf (0-4); Specific Gravity Urine 1.032 (1.000-1.030); Urobilinogen Urine Negative (Negative); pH Urine 5.5 (4.5-7.5)
[2023-08-13 01:00] LABS: Bilirubin Urine 1+ (Negative)
[2023-08-13 07:57] LABS: Basophils # (auto) 0.06 K/uL (0.00-0.20); Basophils % (auto) 0.4 %; Eosinophils # (auto) 0.17 K/uL (0.00-0.50); Eosinophils % (auto) 1.2 %; Hematocrit (blood only) 44.3 % (42.0-52.0); Immature Granulocytes # (auto) 0.07 K/uL (0.01-0.20); Immature Granulocytes % (auto) 0.5 %; Lymphocytes % (auto) 22.5 %; Mean Corpuscular Hemoglobin 31.6 pg (25.0-34.0); Mean Corpuscular Hgb Conc 33.9 g/dL (32.0-36.0); Mean Corpuscular Volume 93.3 fL (80.0-100.0); Mean Platelet Volume 10.6 fL (9.4-12.4); Monocytes # (auto) 1.75 K/uL (0.11-0.59); Monocytes % (auto) 12.3 %; Neutrophils # (auto) 8.97 K/uL (1.40-6.50); Neutrophils % (auto) 63.1 %; Platelet Count 247 K/uL (130-400); RDW Coefficient of Variation 13.2 % (11.5-14.5); RDW Standard Deviation 45.3 fL (36.4-46.3); Red Blood Count 4.75 M/uL (4.70-6.10); White Blood Count 14.22 K/ul (4.8-10.8)
[2023-08-13] MEDS: SODIUM CHLORIDE 0.9% 1,000 ML IV SCH ×4 (08:12→22:26)
[2023-08-13 08:14] LABS: Albumin Globulin Ratio 1.4 (0.9-2); Albumin Level 3.8 gm/dl (3.4-5.0); BUN Creatinine Ratio 18.6 (10-20); Bilirubin,Total 1.6 mg/dl (0.2-1.0); Calcium 8.5 mg/dl (8.6-10.3); Creatinine Clr Calc Pharmacy 36.3 ml/min; Est GFR (African American) 47.6 ml/min; Globulin 2.7 gm/dl (2.5-4.0); Magnesium 2.2 mg/dl (1.7-2.4); Potassium 4.5 mmol/L (3.5-5.1); Total Protein 6.5 gm/dl (6.0-8.3)
[2023-08-13] MEDS: UMECLIDINIUM/VILANTEROL 62.5/25MCG 7 PUFFS/INHALER INH SCH (08:37)
[2023-08-13] MEDS: FLUTICASONE FUROATE 100MCG 14 PUFFS/INHALER INH SCH (08:37)
[2023-08-13] MEDS: LOSARTAN POTASSIUM 50 MG TAB PO SCH (08:38)
[2023-08-13] MEDS: HEPARIN SOD 5,000 UNIT/0.5 ML VIAL SQ SCH ×2 (08:38→22:15)
[2023-08-13] MEDS ORDERED: NON-FORMULARY MEDICATION (Fluticasone-Umeclidin-Vilanter [Trelegy Ellipta] 100-62.5-25 mcg INH SCH (09:00)
--- NOTE | 2023-08-13 11:23 | XRay Report ---
KUB CLINICAL HISTORY: Abdominal distention. FINDINGS: 4 AP, portable, supine abdominal radiographs are compared to study dated 09/14/2014 and barby elated with abdominal CT dated 08/12/2023. Cholecystectomy clips are seen in the right upper quadrant. Distended and gas-filled loops of small bowel persist, measuring up to 4.0 cm. This indicates persis tent small bowel obstruction. No evidence of intraperitoneal free air is seen on these supine images. There are no abnormal abdominal calcifications. Phleboliths are seen in the pelvis. The skeletal str uctures are osteopenic and appear intact. There is moderate lumbosacral spondylosis. IMPRESSION: Persistent small bowel obstruction. Electronically signed by: Casey Jo M.D. 08/13/2023 11:22 AM
--- NOTE | 2023-08-13 13:30 | Surgery Progress Note ---
Date of Service August 13, 2023 Assessment & Plan (1) SBO (small bowel obstruction): Plan: Partial small bowel obstruction versus enteritis/ileus. I recommended an NG tube, the patient continued to refuse. Given the gentle transition on scan, it is not clear that this was truly an obstruction No surgical intervention at this time Continue n.p.o. for now If continued vomiting would recommend NG tube, the patient has continued to refuse surgery will follow, call with questions or concern Admission and Anticipated Discharge Date Admission Date: August 12, 2023 Subjective 83-year-old male admitted for partial small bowel obstruction versus enteritis or ileus. Still feels distended, some cramping, has not passed flatus yet. Reports he was admitted for a bowel blockage several years ago in the past and refused an NG tube at that point to Physical Exam Constitutional: WD/WN, vitals as above Gastrointestinal (Abdomen): Percussion/Palpation: + abdomen tender (Mild tenderness diffusely) and abdomen soft; no guarding and abdomen not rigid Results & Data Vital Signs (Past 12 Hours) Vital Signs Temp Pulse BP Pulse Ox O2 Del Method 08/13/23 11:00 37.1 C 79 115/68 93 Room Air 08/13/23 08:47 36.8 C 91 H 133/82 91 Room Air Diagnostic Findings KUB CLINICAL HISTORY: Abdominal distention. FINDINGS: 4 AP, portable, supine abdominal radiographs are compared to study dated 09/14/2014 and correlated with abdominal CT dated 08/12/2023. Sujatha cystectomy clips are seen in the right upper quadrant. Distended and gas-filled loops of small bowel persist, measuring up to 4.0 cm. This indicates persistent small bowel obstruction. No evidence of intraperitoneal free air is seen on these supine images. There are no abnormal abdominal calcifications. Phleboliths are seen in the pelvis. The skeletal structures are osteopenic and appear intact. There is moderate lumbosacral spondylosis. IMPRESSION: Persistent small bowel obstruction. PG Care Time/CCT Total # of Minutes Spent Total Time Spent with Patient: Total time spent is greater than 50% in coordination of care (as documented) at patient's floor/unit and/or counseling patient: Coding Level of Care Code 89886 SUB INP/OBS CARE 2/35MIN Diagnoses SBO (small bowel obstruction) K56.609
--- NOTE | 2023-08-13 14:42 | Hospitalist Progress Note ---
Date of Service August 13, 2023 Assessment & Plan (1) SBO (small bowel obstruction): Plan: 83 yo male with PMHx of HTN, GERD, BPH, and COPD presents with abdominal pain. #SBO Clinically improving with less pain, no nausea, no vomiting. Has not had any bowel movement yet. Not passing gas yet. Patient is refusing NG tube placement General surgery involved Continue conservative management with strict n.p.o., pain control, IV fluid, antiemetics. #JASON -Cr 1.46 on admission. Creatinine today is mildly higher at 1.56 Continue IV fluids Most likely secondary to prerenal dehydration Monitor daily BMP Avoid nephrotoxins #HTN -resume losartan when able #GERD -resume omeprazole when able #BPH -resume finasteride when able #COPD -cont. 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 Abdominal pain is improving slowly. No nausea or vomiting today. Patient has not had any bowel movement yet. He is not passing gas yet either. Review of Systems Review of Systems: All systems reviewed & are unremarkable except as noted in Subjective Physical Exam 2 Physical Exam: General: Awake, conversant Heart: S1, S2/regular rate and rhythm, no murmur rubs or gallops Lungs: Clear to auscultation bilaterally. Normal effort Abdomen: Soft/ mildly distended. Mild tenderness to palpation with no rebound, rigidity or guarding.. No hepatosplenomegaly. No bowel sounds heard. Extremities: No clubbing/cyanosis. No edema Behavior: Appropriate, cooperative Results & Data Results & Data Vital Signs (Past 12 Hours) Vital Signs Temp Pulse BP Pulse Ox O2 Del Method 08/13/23 11:00 37.1 C 79 115/68 93 Room Air 08/13/23 08:47 36.8 C 91 H 133/82 91 Room Air Laboratory Results Abnormal lab results 08/12/23 08/13/23 08/13/23 Range/Units 18:19 00:05 07:03 WBC 16.51 H 14.22 H (4.8-10.8) K/ul Neut # (Auto) 11.35 H 8.97 H (1.40-6.50) K/uL [place] # (Auto) 1.90 H 1.75 H (0.11-0.59) K/uL Sodium 135 L (136-145) mmol/L BUN 26 H 29 H (6-23) mg/dl Creatinine 1.46 H 1.56 H (0.6-1.4) mg/dl Glucose 121 H 111 H (70-99(Fasting)) mg/dl Calcium 8.5 L (8.6-10.3) mg/dl Total Bilirubin 1.3 H 1.6 H (0.2-1.0) mg/dl AST 61 H (13-39) U/L ALT 130 H 88 H (7-52) U/L Ur Specific [place] 1.032 H (1.000-1.030) Urine Protein Trace H (Negative) Urine Ketones 1+ H (Negative) Urine Nitrite Positive A (Negative) Urine Bilirubin 1+ H (Negative) Ur Leukocyte Esterase Trace H (Negative) U Hyaline Cast (Auto) 10-30 H (0-5) /lpf U Epithel Cells (Auto) 20-30 H (0-5) /lpf Diagnostic Findings Abdomen/Pelvis CT 08/12/23 19:05 Exam(s): CT ABDOMEN + PELVIS Without Contrast EXAM: CT Abdomen and Pelvis Without Intravenous Contrast CLINICAL HISTORY: Reason for exam: abd pain, ?sbo. TECHNIQUE: Axial computed tomography images of the abdomen and pelvis without intravenous contrast. CTDI is 27.05 mGy and DLP is 1394.81 mGy-cm. Automated exposure control was utilized for the study. A dose lowering technique was utilized adhering to the principles of ALARA. COMPARISON: No relevant prior studies available. FINDINGS: Lung bases: Atelectasis at the lung bases. ABDOMEN: Liver: Unremarkable. Gallbladder and bile ducts: Cholecystectomy. No ductal dilation. Pancreas: Unremarkable. No ductal dilation. Spleen: Unremarkable. No splenomegaly. Adrenals: Unremarkable. No mass. Kidneys and ureters: Unremarkable. No hydronephrosis, nephrolithiasis, or obstructive uropathy. Stomach and bowel: Distended small bowel measured up to 3.2 cm, concerning for small bowel obstruction. No definite transition point identified. Surgical evaluation recommended. Diverticulosis, without acute diverticulitis. No small bowel obstruction. No free air. PELVIS: Appendix: Normal appendix. Bladder: Unremarkable. No stones. Reproductive: Unremarkable as visualized. ABDOMEN and PELVIS: Intraperitoneal space: See above. Bones/joints: Degenerative changes of the spine. No acute fracture. No dislocation. Soft tissues: Bilateral fat-containing inguinal hernias. Vasculature: Atherosclerotic changes of the aorta. No abdominal aortic aneurysm. Lymph nodes: Unremarkable. No enlarged lymph nodes. IMPRESSION: Distended small bowel measured up to 3.2 cm, concerning for small bowel obstruction. No definite transition point identified. Surgical evaluation recommended. Electronically signed by: Juvenal Mckeon MD 08/12/23 19:55 PM KUB X-Ray 08/13/23 08:00 KUB CLINICAL HISTORY: Abdominal distention. FINDINGS: 4 AP, portable, supine abdominal radiographs are compared to study dated 09/14/2014 and correlated with abdominal CT dated 08/12/2023. Cholecystectomy clips are seen in the right upper quadrant. Distended and gas- filled loops of small bowel persist, measuring up to 4.0 cm. This indicates persistent small bowel obstruction. No evidence of intraperitoneal free air is seen on these supine images. There are no abnormal abdominal calcifications. Phleboliths are seen in the pelvis. The skeletal structures are osteopenic and appear intact. There is moderate lumbosacral spondylosis. IMPRESSION: Persistent small bowel obstruction. Electronically signed by: Casey Jo M.D. 08/13/2023 11:22 AM PG Care Time/CCT Total # of Minutes Spent Total Time Spent with Patient: Total time spent is greater than 50% in coordination of care (as documented) at patient's floor/unit and/or counseling patient: Coding Level of Care Code 08169 SUB INP/OBS CARE 2/35MIN Diagnoses SBO (small bowel obstruction) 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
[2023-08-13] MEDS: FINASTERIDE 5 MG TAB PO SCH (21:08)
[2023-08-13] MEDS: FOLIC ACID 400 MCG TAB PO SCH (21:08)
[2023-08-13] MEDS: PANTOprazole 40 MG TAB PO SCH (21:08)
[2023-08-14] MEDS: SODIUM CHLORIDE 0.9% 1,000 ML IV SCH (06:09)
--- NOTE | 2023-08-14 07:41 | Electrocardiogram Report ---
Test Reason : Blood Pressure : / mmHG Vent. Rate : 106 BPM Atrial Rate : 106 BPM P-R Int : 160 ms QRS Dur : 108 ms QT Int : 350 ms P-R-T Axes : 023 014 012 degrees QTc Int : 464 ms Sinus tachycardia Low voltage QRS Incomplete right bundle branch block Lateral infarct (cited on or before 13-SEP-2014) Inferior infarct (cited on or before 16-JUL-2006) T wave abnormality, consider anterior ischemia Abnormal ECG When compared with ECG of 13-SEP-2014 23:44, Vent. rate has increased BY 35 BPM Incomplete right bundle branch block is now Present Confirmed by Ciro Hansen ([id number]) on 08/13/2023 12:00:04 PM Referred By: REFERRED SELF Confirmed By:Shimon Hansen
[2023-08-14] MEDS: LOSARTAN POTASSIUM 50 MG TAB PO SCH (09:00)
[2023-08-14] MEDS: FLUTICASONE FUROATE 100MCG 14 PUFFS/INHALER INH SCH (09:15)
[2023-08-14] MEDS: HEPARIN SOD 5,000 UNIT/0.5 ML VIAL SQ SCH ×2 (09:16→19:51)
[2023-08-14] MEDS: UMECLIDINIUM/VILANTEROL 62.5/25MCG 7 PUFFS/INHALER INH SCH (09:18)
[2023-08-14 09:20] LABS: Hematocrit (blood only) 42.1 % (42.0-52.0); Hemoglobin 13.9 g/dl (14.0-18.0); Mean Corpuscular Hemoglobin 31.7 pg (25.0-34.0); Mean Corpuscular Volume 96.1 fL (80.0-100.0); Mean Platelet Volume 10.1 fL (9.4-12.4); Platelet Count 205 K/uL (130-400); RDW Coefficient of Variation 13.1 % (11.5-14.5); RDW Standard Deviation 46.5 fL (36.4-46.3); Red Blood Count 4.38 M/uL (4.70-6.10)
[2023-08-14 09:38] LABS: BUN Creatinine Ratio 26.7 (10-20); Calcium 7.9 mg/dl (8.6-10.3); Creatinine Clr Calc Pharmacy 43.2 ml/min; Est GFR (African American) 58.8 ml/min; Est GFR (Non-African American) 50.7 ml/min; Potassium 4.1 mmol/L (3.5-5.1)
--- NOTE | 2023-08-14 12:14 | XRay Report ---
KUB HISTORY: Small bowel obstruction follow-up sbo COMPARISON: 08/13/2023 FINDINGS: Persistent small bowel obstruction. Dilated air-filled loops of small bowel measure up to a pproximately 4.6 cm, previously 6.3 cm. Air is also present within the large bowel. Cholecystectomy. No renal calculi. No ureteral calculi. No pneumoperitoneum or pneumatosis. No fracture. IMPRESSION: Persistent small bowel obstruction. ACT 112: Negative or not required by law. The above report was generated using voice recognition software. It may contain grammatical, syntax o r spelling errors. Electronically signed by: Cosme Cao M.D. 08/14/2023 12:11 PM
--- NOTE | 2023-08-14 12:25 | Surgery Progress Note ---
Date of Service August 14, 2023 Assessment & Plan (1) Gastroenteritis: Plan: 83-year-old male admitted with gastroenteritis versus SBO. Given his new development of liquid stool along with the distention of his small bowel and with air and liquid in his colon, feel this more likely represents an evolution of gastroenteritis rather than a small bowel obstruction No surgical intervention at this time Start on clear liquid Slowly advance to low fiber [facility] Dr. Holm covering over the weekend call with questions or concerns Admission and Anticipated Discharge Date Admission Date: August 12, 2023 Subjective 83-year-old male admitted with enteritis versus small bowel obstruction. Overnight he had multiple loose bowel movements. He is passing gas and no longer has any abdominal pain. He is starting to feel hungry. Physical Exam Constitutional: WD/WN, vitals as above Gastrointestinal (Abdomen): normal bowel sounds, soft, nontender, no hepatosplenomegaly Inspection/Auscultation: + abdomen distended (Improving) Results & Data Vital Signs (Past 12 Hours) Vital Signs Temp Pulse Resp BP Pulse Ox O2 Del Method 08/14/23 07:03 36.6 C 62 18 111/68 94 Room Air Diagnostic Findings Personally reviewed and interpreted the KUB. There is dilated bowel however there is air throughout the entire small bowel and all the way into the colon. KUB HISTORY: Small bowel obstruction follow-up sbo COMPARISON: 08/13/2023 FINDINGS: Persistent small bowel obstruction. Dilated air-filled loops of small bowel measure up to approximately 4.6 cm, previously 6.3 cm. Air is also present within the large bowel. Cholecystectomy. No renal calculi. No ureteral calculi. No pneumoperitoneum or pneumatosis. No fracture. IMPRESSION: Persistent small bowel obstruction. PG Care Time/CCT Total # of Minutes Spent Total Time Spent with Patient: Total time spent is greater than 50% in coordination of care (as documented) at patient's floor/unit and/or counseling patient: Coding Level of Care Code 57211 SUB INP/OBS CARE 2/35MIN Diagnoses Gastroenteritis K52.9
--- NOTE | 2023-08-14 15:44 | Hospitalist Progress Note ---
Date of Service August 14, 2023 Assessment & Plan (1) SBO (small bowel obstruction): Plan: 83 yo male with PMHx of HTN, GERD, BPH, and COPD presents with abdominal pain. #SBO Clinically improving with less pain, no nausea, no vomiting. has been having bowel movements: Liquid Patient is refusing NG tube placement General surgery involved advance diet. #JASON -Cr 1.46 on admission. resolved discontinue IV fluids Encourage p.o. fluid intake Most likely secondary to prerenal dehydration Monitor daily BMP Avoid nephrotoxins #HTN -resume losartan when able #GERD -resume omeprazole when able #BPH -resume finasteride when able #COPD -cont. home inahlers DVT ppx: heparin SQ FEN/GI: start clear liquid diet, advance slowly. Discontinue IV fluids Code Status: full (2) COPD with emphysema: (3) BPH without obstruction/lower urinary tract symptoms: (4) Hypertension: (5) GERD (gastroesophageal reflux disease): (6) JASON (acute kidney injury): Admission and Anticipated Discharge Date Admission Date: August 12, 2023 Subjective Patient feels better. He says that he has been having loose stools. He is hungry Review of Systems Review of Systems: All systems reviewed & are unremarkable except as noted in Subjective Physical Exam Physical Exam: General: Awake, conversant Heart: S1, S2/regular rate and rhythm, no murmur rubs or gallops Lungs: Clear to auscultation bilaterally. Normal effort Abdomen: Soft/ mildly distended. nontender. No hepatosplenomegaly. bowel sounds heard. Extremities: No clubbing/cyanosis. No edema Behavior: Appropriate, cooperative Results & Data Results & Data Vital Signs (Past 12 Hours) Vital Signs Temp Pulse Resp BP Pulse Ox O2 Del Method 08/14/23 14:51 36.5 C 69 18 131/75 95 Room Air 08/14/23 07:03 36.6 C 62 18 111/68 94 Room Air Laboratory Results Abnormal lab results 08/14/23 Range/Units 09:04 RBC 4.38 L (4.70-6.10) M/uL Hgb 13.9 L (14.0-18.0) g/dl RDW Std Deviation 46.5 H (36.4-46.3) fL BUN 35 H (6-23) mg/dl BUN/Creatinine Ratio 26.7 H (10-20) Calcium 7.9 L (8.6-10.3) mg/dl PG Care Time/CCT Total # of Minutes Spent Total Time Spent with Patient: Total time spent is greater than 50% in coordination of care (as documented) at patient's floor/unit and/or counseling patient: Coding Level of Care Code 97524 SUB INP/OBS CARE 2/35MIN Diagnoses SBO (small bowel obstruction) 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
[2023-08-14] MEDS: PANTOprazole 40 MG TAB PO SCH (19:51)
[2023-08-14] MEDS: FOLIC ACID 400 MCG TAB PO SCH (19:51)
[2023-08-14] MEDS: FINASTERIDE 5 MG TAB PO SCH (19:52)
[2023-08-15 07:28] LABS: Hematocrit (blood only) 39.3 % (42.0-52.0); Hemoglobin 13.5 g/dl (14.0-18.0); Mean Corpuscular Hemoglobin 31.6 pg (25.0-34.0); Mean Corpuscular Hgb Conc 34.4 g/dL (32.0-36.0); Mean Platelet Volume 10.9 fL (9.4-12.4); Platelet Count 196 K/uL (130-400); RDW Coefficient of Variation 12.7 % (11.5-14.5); Red Blood Count 4.27 M/uL (4.70-6.10); White Blood Count 9.63 K/ul (4.8-10.8)
[2023-08-15 07:57] LABS: BUN Creatinine Ratio 19.1 (10-20); Calcium 7.7 mg/dl (8.6-10.3); Creatinine Clr Calc Pharmacy 51.5 ml/min; Est GFR (African American) 72.6 ml/min; Est GFR (Non-African American) 62.6 ml/min; Potassium 3.7 mmol/L (3.5-5.1)
[2023-08-15] MEDS: LOSARTAN POTASSIUM 50 MG TAB PO SCH (08:52)
[2023-08-15] MEDS: UMECLIDINIUM/VILANTEROL 62.5/25MCG 7 PUFFS/INHALER INH SCH (08:52)
[2023-08-15] MEDS: FLUTICASONE FUROATE 100MCG 14 PUFFS/INHALER INH SCH (08:52)
[2023-08-15] MEDS: HEPARIN SOD 5,000 UNIT/0.5 ML VIAL SQ SCH ×2 (08:53→21:04)
--- NOTE | 2023-08-15 12:35 | Surgery Progress Note ---
Date of Service August 15, 2023 Assessment & Plan (1) Gastroenteritis: Plan: vs bowel obstruction. appears to be improving. Would continue on diet for today. if tolerates and continues to pass gas/ have bowel movements, potential discharge tomorrow. Admission and Anticipated Discharge Date Admission Date: August 12, 2023 Subjective Tolerating low fiber diet. complaining of some intermittent lower abdominal pain. Having bowel movements (small). Passing flatus. No nausea. Physical Exam Constitutional: WD/WN, vitals as above Respiratory: normal respiratory effort, lungs clear to auscultation Gastrointestinal (Abdomen): Inspection/Auscultation: abdomen normal to inspection and normal bowel sounds Percussion/Palpation: + abdomen tender (mild in lower abdomen) and abdomen soft; no guarding and abdomen not rigid Neurologic: awake; no focal motor deficits Psychiatric: A+Ox3, euthymic affect Results & Data Vital Signs (Past 12 Hours) Vital Signs Temp Pulse Resp BP Pulse Ox O2 Del Method 08/15/23 07:42 36.7 C 71 20 137/80 95 Room Air Diagnostic Findings KUB with dilated small bowel and air in large bowel
--- NOTE | 2023-08-15 13:05 | Hospitalist Progress Note ---
Date of Service August 15, 2023 Assessment & Plan (1) SBO (small bowel obstruction): Plan: 83 yo male with PMHx of HTN, GERD, BPH, and COPD presents with abdominal pain. #SBO Today patient's abdomen seems to be slightly more distended He ate a solid meal this morning and felt nauseous Canceled discharge plan for today We will downgrade to a clear liquid diet for today Patient has been having liquid bowel movements Monitor clinically #JASON -Cr 1.46 on admission. resolved discontinued IV fluids Encourage p.o. fluid intake Most likely secondary to prerenal dehydration Monitor daily BMP Avoid nephrotoxins #HTN -resume losartan when able #GERD -resume omeprazole when able #BPH -resume finasteride when able #COPD -cont. home inahlers DVT ppx: heparin SQ FEN/GI: Clear liquid diet today Code Status: full (2) COPD with emphysema: (3) BPH without obstruction/lower urinary tract symptoms: (4) Hypertension: (5) GERD (gastroesophageal reflux disease): (6) JASON (acute kidney injury): Admission and Anticipated Discharge Date Admission Date: August 12, 2023 Subjective Patient says that he had a solid meal this morning. [place] nauseous after that. Nausea seems to have resolved. He has been having liquid stools. His belly seems to be slightly distended. He still has mild tenderness in his abdomen. Review of Systems Review of Systems: All systems reviewed & are unremarkable except as noted in Subjective Physical Exam Physical Exam: General: Awake, conversant Heart: S1, S2/regular rate and rhythm, no murmur rubs or gallops Lungs: Clear to auscultation bilaterally. Normal effort Abdomen: Soft/ mildly distended. nontender. No hepatosplenomegaly. Trickling bowel sounds heard. Extremities: No clubbing/cyanosis. No edema Behavior: Appropriate, cooperative Results & Data Results & Data Vital Signs (Past 12 Hours) Vital Signs Temp Pulse Resp BP Pulse Ox O2 Del Method 08/15/23 07:42 36.7 C 71 20 137/80 95 Room Air Laboratory Results Abnormal lab results 08/15/23 Range/Units 06:03 RBC 4.27 L (4.70-6.10) M/uL Hgb 13.5 L (14.0-18.0) g/dl Hct 39.3 L (42.0-52.0) % Sodium 135 L (136-145) mmol/L Glucose 103 H (70-99(Fasting)) mg/dl Calcium 7.7 L (8.6-10.3) mg/dl PG Care Time/CCT Total # of Minutes Spent Total Time Spent with Patient: Total time spent is greater than 50% in coordination of care (as documented) at patient's floor/unit and/or counseling patient: Coding Level of Care Code 92176 SUB INP/OBS CARE 2/35MIN Diagnoses SBO (small bowel obstruction) 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
[2023-08-15] MEDS: FOLIC ACID 400 MCG TAB PO SCH (21:04)
[2023-08-15] MEDS: PANTOprazole 40 MG TAB PO SCH (21:04)
[2023-08-15] MEDS: FINASTERIDE 5 MG TAB PO SCH (21:04)
[2023-08-16 06:21] LABS: Hematocrit (blood only) 38.7 % (42.0-52.0); Hemoglobin 13.5 g/dl (14.0-18.0); Mean Corpuscular Hemoglobin 31.5 pg (25.0-34.0); Mean Corpuscular Hgb Conc 34.9 g/dL (32.0-36.0); Mean Corpuscular Volume 90.4 fL (80.0-100.0); Mean Platelet Volume 10.5 fL (9.4-12.4); Platelet Count 207 K/uL (130-400); RDW Coefficient of Variation 12.7 % (11.5-14.5); RDW Standard Deviation 42.1 fL (36.4-46.3); Red Blood Count 4.28 M/uL (4.70-6.10); White Blood Count 6.98 K/ul (4.8-10.8)
[2023-08-16 06:55] LABS: BUN Creatinine Ratio 11.8 (10-20); Calcium 7.8 mg/dl (8.6-10.3); Creatinine Clr Calc Pharmacy 51.5 ml/min; Est GFR (African American) 72.6 ml/min; Est GFR (Non-African American) 62.6 ml/min; Potassium 3.5 mmol/L (3.5-5.1)
[2023-08-16] MEDS: FLUTICASONE FUROATE 100MCG 14 PUFFS/INHALER INH SCH (08:31)
[2023-08-16] MEDS: LOSARTAN POTASSIUM 50 MG TAB PO SCH (08:31)
[2023-08-16] MEDS: UMECLIDINIUM/VILANTEROL 62.5/25MCG 7 PUFFS/INHALER INH SCH (08:31)
[2023-08-16] MEDS: HEPARIN SOD 5,000 UNIT/0.5 ML VIAL SQ SCH (08:32)
--- NOTE | 2023-08-16 11:46 | Surgery Progress Note ---
Date of Service August 16, 2023 Assessment & Plan (1) Gastroenteritis: Plan: Enteritis vs bowel obstruction. Doing well. Discharge to home today. Admission and Anticipated Discharge Date Admission Date: August 12, 2023 Subjective Doing well. Sitting in bed ready to go home. Physical Exam Constitutional: WD/WN, vitals as above Gastrointestinal (Abdomen): Inspection/Auscultation: abdomen normal to inspection and normal bowel sounds Percussion/Palpation: + abdomen tender (mild in lower abdomen) and abdomen soft; no guarding and abdomen not rigid Neurologic: awake; no focal motor deficits Psychiatric: A+Ox3, euthymic affect Results & Data Vital Signs (Past 12 Hours) Vital Signs Temp Pulse Resp BP Pulse Ox O2 Del Method 08/16/23 07:44 36.7 C 67 18 160/75 H 97 Room Air
--- NOTE | 2023-08-16 13:03 | Discharge Summary ---
Date of Service August 16, 2023 Admission HPI Per Admitting Provider 83 yo male with PMHx of HTN, GERD, BPH, and COPD presents with abdominal pain. Yesterday patient started feeling abdominal pain and distention which progressively got worse. He did have 1 bout of diarrhea this morning and then proceeded to vomit clear liquid. He also endorses a headache he has been experiencing over the last few weeks. Otherwise denies chest pain, shortness of breath, fatigue, fever, dysuria, urinary frequency, extremity weakness/numbness/tingling. Does have a history of cholecystectomy. No history of hernias. Admission Exam Per Admitting Provider Constitutional: in no acute distress, pleasant and normal affect, intact memory. AOx3. Vitals as above. HEENT: No scleral injection or discharge.Dry mucous membranes. Neck: Supple without lymphadenopathy or thyromegaly. Trachea midline. Lungs: Clear to auscultation bilaterally with good effort. No wheezes/rales/rhonchi. Cardiac: Regular rate and rhythm. No murmurs.No lower extremity edema. 2+ distal peripheral pulses. Abdomen: Moderate distention and diffuse tenderness to palpation. MSK: No cyanosis or clubbing. Extremities motor strength 5/5. Skin: No rashes, warm, dry. Neurologic: no focal deficits Principal Diagnosis small bowel obstruction versus viral gastroenteritis Discharge Exam General: Awake, conversant Heart: S1, S2/regular rate and rhythm, no murmur rubs or gallops Lungs: Clear to auscultation bilaterally. Normal effort Abdomen: Soft/ mildly distended. nontender. No hepatosplenomegaly. Trickling bowel sounds heard. Extremities: No clubbing/cyanosis. No edema Behavior: Appropriate, cooperative Discharge Data Allergies Allergy/AdvReac Type Severity Reaction Status Date / Time Iodinated Contrast Media AdvReac Intermediate CAN'T Verified 08/12/23 20:48 BREATHE Consultations 08/12/23 20:30 Consult General Surgery Stat ED Decision to Admit Stat Ordered Studies 08/12/23 19:05 CT abd pelvis wo con Stat Hospital Course (1) SBO (small bowel obstruction): 83 yo male with PMHx of HTN, GERD, BPH, and COPD presents with abdominal pain. #SBO resolved with conservative treatment tolerated solid diet Patient has been having liquid bowel movements Question the possibility of a viral gastroenteritis #JASON -Cr 1.46 on admission. resolved discontinued IV fluids Encourage p.o. fluid intake Most likely secondary to prerenal dehydration Avoid nephrotoxins #HTN -resume losartan when able #GERD -resume omeprazole when able #BPH -resume finasteride when able #COPD -cont. home inahlers discharged home today (2) COPD with emphysema: (3) BPH without obstruction/lower urinary tract symptoms: (4) Hypertension: (5) GERD (gastroesophageal reflux disease): (6) JASON (acute kidney injury): Total Time Total Time Spent Total Time Spent (In Minutes): 35 Discharge Plan Discharge Items Patient Disposition: Home - Self-Care Reason For Visit: ABDOMINAL PAIN Discharge Diagnosis: small bowel obstruction versus gastroenteritis Acute kidney injury due to dehydration Activity: Resume your previous activity Non-emergency contact: Primary Care Provider Call non-emergency contact if: you have any medication questions and your symptoms worsen Follow-up/Referrals: Casey Tinoco MD [Primary Care Provider] - (Patient has a f/u appt w/spouse on 08/20/23. They do a joint appt.) Diet: Low Fat Addtl Attending Provider Instructions: Follow-up with PCP in 1 week Pending Studies at Discharge: No Stand-Alone Forms: My [facility] [employer] Medications and DC Order Prescriptions: Continued nitroglycerin 0.4 mg tablet, sublingual 0.4 mg sublingual Q5M PRN (Reason: chest pain) Qty: 25 0RF Rx Instructions: do not exceed 3 doses per episode Trelegy Ellipta 100-62.5-25 mcg blister with device 1 inh INH DAILY Qty: 60 11RF finasteride 5 mg tablet 5 mg PO HS folic acid 400 mcg Tablet 0.4 mg PO HS cholecalciferol (vitamin D3) [Vitamin D3] 10 mcg (400 unit) Tablet 20 mcg PO HS omeprazole 40 mg capsule,delayed release(DR/EC) 40 mg PO HS losartan 100 mg tablet 100 mg PO QAM Rx Instructions: instead of Lisinopril. 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
--- NOTE | 2023-08-21 12:00 | Coding Query ---
To promote full compliance with coding requirements relating to patient care, provider participation is requested in all cases of major assembly lineman uncertainty. Please assist us with the question(s) below: Coding Question(s): The diagnosis(es) below are documented throughout the chart but are unclear as to which condition has taken presidency over care or determined to be ruled out. Please indicate if it is still a possible diagnosis or ruled out. Physician's Response(s): Small Bowel Obstruction ( ) Diagnosed and POA ( ) Diagnosed and not POA ( ) Ruled out ( ) Other (please specify) Viral Gastroenteritis ( ) Diagnosed and POA ( ) Diagnosed and not POA ( ) Ruled out ( ) Other (please specify) MTDD
== END 2023-08-16 13:14 | disposition home or self-care (01) | DRG 389 ==
LOC: ED 17:37 → SUATTDRO 21:58 → 3W 21:58